=== PATIENT | female | born 1930 | race Caucasian/White ===

== ENCOUNTER → 2017-01-19 12:05 | Outpatient (CLI) | payer MEDICARE, BC ==
[2011-05-18 11:02] VITALS: BMI 27.2
== END | disposition home or self-care (01) ==
LOC: D.MAMMO 12-10 10:00
DX: Z12.31 Encounter for screening mammogram for malignant neoplasm of breast (principal)

== ENCOUNTER 2017-02-13 18:12 | Inpatient (IN) | payer MEDICARE, BC ==
[2017-02-13 18:37] LABS: BASOPHILS 0.2 % (0-2); EOSINOPHILS 1.2 % (0-7); HEMATOCRIT 38.1 % (36.0-48.0); HEMOGLOBIN 12.7 g/dL (12-16); IMMATURE GRANULOCYTES 0.4 % (0-5); LYMPHOCYTES 21.3 % (15-50); MCH 32.3 pg (26.0-34.0); MCHC 33.3 g/dL (31.0-37.0); MCV 96.9 fL (80.0-100.0); NEUTROPHILS 68.9 % (40-80); PLATELET COUNT 278 10x3/uL (130-400); RBC 3.93 10x6/uL (4.00-5.40); RDW 13.3 % (11.5-14.5)
[2017-02-13 19:05] LABS: ALBUMIN 3.5 g/dL (3.4-5.0); ALKALINE PHOSPHATASE 97 U/L (46-116); ALT (SGPT) 22 U/L (10-68); CALC OSMOLALITY 273 mosm/kg (275-300); CALCIUM 9.2 mg/dL (8.5-10.1); CARBON DIOXIDE 25.3 mmol/L (21.0-32.0); CHLORIDE - SERUM 101 mmol/L (98-107); CREATININE - SERUM 0.7 mg/dL (0.6-1.3); GLUCOSE 116 mg/dL (74-106); POTASSIUM - SERUM 3.6 mmol/L (3.5-5.1); PROTEIN - SERUM 6.7 g/dL (6.4-8.2); SODIUM 135 mmol/L (136-145); UREA NITROGEN 22 mg/dL (7-18); eGFR NON AFRICAN AMERICAN 84 mL/min (90-120)
[2017-02-13] MEDS ORDERED: RESTORIL15 MG PO (23:56)
[2017-02-14] MEDS ORDERED: ROBAXIN500 MG PO (00:01)
[2017-02-14] MEDS ORDERED: PROZAC40 MG PO (00:02)
[2017-02-14] MEDS ORDERED: CELEBREX200 MG PO (00:03)
[2017-02-14 00:06] VITALS: BP 155/83; BMI 25.9
--- NOTE | 2017-02-14 00:17 | NUR ---
RN NOTE: ADMISSION ASSESSMENT COMPLETE. SNACK PROVIDED. PT ALERT AND ORIENTED. NEURO CHECK WNL.
--- NOTE | 2017-02-14 01:47 | NUR ---
PATIENT RESTING IN BED WITH EYES CLOSED AND NO VISIBLE SIGNS OF DISTRESS. BED IN LOWEST POSITION AND CALL LIGHT WITHIN REACH.
[2017-02-14 04:00] VITALS: BP 153/76
[2017-02-14 06:46] LABS: BASOPHILS 0.1 % (0-2); EOSINOPHILS 0.4 % (0-7); HEMATOCRIT 35.6 % (36.0-48.0); HEMOGLOBIN 11.8 g/dL (12-16); IMMATURE GRANULOCYTES 0.2 % (0-5); LYMPHOCYTES 12.2 % (15-50); MCH 32.2 pg (26.0-34.0); MCHC 33.1 g/dL (31.0-37.0); MEAN PLATELET VOLUME 9.5 fL (7.4-10.4); MONOCYTES 7.4 % (2-11); NEUTROPHILS 79.7 % (40-80); PLATELET COUNT 273 10x3/uL (130-400); RBC 3.67 10x6/uL (4.00-5.40); RDW 13.4 % (11.5-14.5); WBC 8.4 10x3/uL (4.8-10.8)
[2017-02-14 06:59] LABS: CALC OSMOLALITY 280 mosm/kg (275-300); CALCIUM 8.4 mg/dL (8.5-10.1); CARBON DIOXIDE 27.9 mmol/L (21.0-32.0); CHLORIDE - SERUM 106 mmol/L (98-107); GLUCOSE 113 mg/dL (74-106); POTASSIUM - SERUM 3.2 mmol/L (3.5-5.1); SODIUM 139 mmol/L (136-145); UREA NITROGEN 17 mg/dL (7-18)
[2017-02-14 07:04] LABS: CREATININE - SERUM 0.5 mg/dL (0.6-1.3); eGFR NON AFRICAN AMERICAN > 90 mL/min (90-120)
--- NOTE | 2017-02-14 07:30 | NUR ---
RECIEVED PT DURING WALKING ROUNDS. PT RESTING IN BED WITH COMPLAINTS OF NAUSEA BUT NO PAIN. MEDICATION TO BE GIVEN PER ORDER. ASSESSMENT DONE PER FLOWSHEET. BED IN LOW POSITION AND CALL LIGHT WITHIN REACH. WILL CONTINUE TO MONITOR.
[2017-02-14 09:48] VITALS: BP 139/62
[2017-02-14 12:05] VITALS: BP 127/62
--- NOTE | 2017-02-14 15:05 | NUR ---
ASSISTED PT TO BATHROOM PT VERY UNSTEADY. PT USED WALKER AND STAND BY ASSIST TO GET BACK TO BED. BECAME VERY NAUSEATED DURING WALKING, WILL ADMINISTER MEDICATION PER ORDER.
--- NOTE | 2017-02-14 19:15 | NUR ---
RECEIVED CARE FROM DAY NURSE. PT LYING IN BED WITH WET RAG TO FOREHEAD. NO NEEDS VOICED AT THIS TIME. NS INFUSING TO LEFT AC PER ORDER. CALL LIGHT AT SIDE. PT IN LOW FOWLERS POSITION.
[2017-02-14 21:22] VITALS: BP 147/70
[2017-02-15] VITALS: BP 150/75
--- NOTE | 2017-02-15 00:42 | NUR ---
PATIENT RESTING IN BED WITH NO VISIBLE SIGNS OF DISTRESS. BED IN LOWEST POSITION, CALL LIGHT WITHIN REACH AND BED ALARM ON.
[2017-02-15 04:38] LABS: BASOPHILS 0.1 % (0-2); EOSINOPHILS 0.4 % (0-7); HEMATOCRIT 34.1 % (36.0-48.0); HEMOGLOBIN 11.7 g/dL (12-16); IMMATURE GRANULOCYTES 0.4 % (0-5); LYMPHOCYTES 10.5 % (15-50); MCHC 34.3 g/dL (31.0-37.0); MCV 96.1 fL (80.0-100.0); MEAN PLATELET VOLUME 9.4 fL (7.4-10.4); MONOCYTES 8.5 % (2-11); NEUTROPHILS 80.1 % (40-80); PLATELET COUNT 257 10x3/uL (130-400); RBC 3.55 10x6/uL (4.00-5.40); WBC 7.9 10x3/uL (4.8-10.8)
[2017-02-15 04:56] LABS: ALBUMIN 2.9 g/dL (3.4-5.0); ALKALINE PHOSPHATASE 72 U/L (46-116); ALT (SGPT) 18 U/L (10-68); CALC OSMOLALITY 264 mosm/kg (275-300); CALCIUM 8.3 mg/dL (8.5-10.1); CARBON DIOXIDE 25.5 mmol/L (21.0-32.0); CHLORIDE - SERUM 100 mmol/L (98-107); CREATININE - SERUM 0.5 mg/dL (0.6-1.3); GLUCOSE 116 mg/dL (74-106); POTASSIUM - SERUM 3.5 mmol/L (3.5-5.1); PROTEIN - SERUM 5.6 g/dL (6.4-8.2); SODIUM 133 mmol/L (136-145); eGFR NON AFRICAN AMERICAN > 90 mL/min (90-120)
[2017-02-15 04:57] LABS: UREA NITROGEN 6 mg/dL (7-18)
--- NOTE | 2017-02-15 05:38 | NUR ---
PT K IS 3.5. REFUSSES POTASSIUM AT THIS TIME. PREVIOUS DOSE MADE HER VERY SICK TO HER STOMACH.
--- NOTE | 2017-02-15 07:30 | NUR ---
RECIEVED PT DURING WALKING ROUNDS. PT RESTING IN BED WITH COMPLAINTS OF A HEADACHE OF A 4 ON A SCALE OF 1-10. NO MEDICATION TO BE GIVEN AT THIS TIME. ASSESSMENT DONE PER FLOWSHEET. BED IN LOW POSITION AND CALL LIGHT WITHIN REACH. WILL CONTINUE TO MONITOR.
[2017-02-15 08:21] VITALS: BP 143/56
--- NOTE | 2017-02-15 10:05 | NUR ---
PT BECAME VERY NAUSEATED WHILE WALKING WITH PHYSICAL THERAPY. RETURNED TO BED WITH NO OTHER COMPLAINTS. WASH CAP APPLIED TO PTS HAIR TO REMOVED DRIED BLOOD. WILL ASSIST PT INTO SHOWER WHEN PT BEGINS TO FEEL BETTER.
[2017-02-15 12:42] VITALS: BMI 25.8
[2017-02-15 17:31] VITALS: BP 153/67
[2017-02-15 20:00] VITALS: BP 120/66
[2017-02-16] VITALS: BP 138/84
--- NOTE | 2017-02-16 01:09 | NUR ---
EYES CLOSED RESPIRATIONS WITH EASE AND UNLABORED.
[2017-02-16 04:00] VITALS: BP 158/71
[2017-02-16 04:50] LABS: BASOPHILS 0.1 % (0-2); EOSINOPHILS 0.6 % (0-7); HEMATOCRIT 34.6 % (36.0-48.0); HEMOGLOBIN 12.1 g/dL (12-16); IMMATURE GRANULOCYTES 0.3 % (0-5); LYMPHOCYTES 10.7 % (15-50); MCH 32.4 pg (26.0-34.0); MCV 92.5 fL (80.0-100.0); MEAN PLATELET VOLUME 9.5 fL (7.4-10.4); MONOCYTES 10.5 % (2-11); NEUTROPHILS 77.8 % (40-80); PLATELET COUNT 279 10x3/uL (130-400); RBC 3.74 10x6/uL (4.00-5.40); RDW 12.4 % (11.5-14.5); WBC 7.9 10x3/uL (4.8-10.8)
[2017-02-16 05:24] LABS: CALC OSMOLALITY 258 mosm/kg (275-300); CALCIUM 8.7 mg/dL (8.5-10.1); CARBON DIOXIDE 26.5 mmol/L (21.0-32.0); CHLORIDE - SERUM 94 mmol/L (98-107); CREATININE - SERUM 0.5 mg/dL (0.6-1.3); GLUCOSE 100 mg/dL (74-106); SODIUM 130 mmol/L (136-145); UREA NITROGEN 6 mg/dL (7-18); eGFR NON AFRICAN AMERICAN > 90 mL/min (90-120)
[2017-02-16 06:46] LABS: POTASSIUM - SERUM 2.8 mmol/L (3.5-5.1)
[2017-02-16] MEDS ORDERED: ZOFRAN4 MG PO (07:24)
[2017-02-16] MEDS ORDERED: ANTIVERT12.5 MG PO (07:25)
--- NOTE | 2017-02-16 07:52 | NUR ---
AWAKE AND ALERT. ORIENTED X3. NO C/O THIS AM. LUNGS ARE CLEAR BILATERALLY, NO COUGH NOTED. SKIN IS INTACT WITHOUT REDNESS. INCISION TO HEAD IS HEALING WITHOUT SIGNS OF INFECTION. IV TO LEFT AC IS PATENT WITHOUT REDNESS AT INSERTION SITE. DENIES NEEDS.
[2017-02-16 08:30] VITALS: BP 145/51
--- NOTE | 2017-02-16 09:30 | NUR ---
AMBULATED IN HALLWAY WITH PT USING RW. NO C/O PAIN WITH INCREASED ACTIVITY.
--- NOTE | 2017-02-16 09:51 | NUR ---
Patient Name: KIMBERLEY ASHER Admission Status: ER Accout number: [id number] Admission Date: 02-14-2017 : 1932 Admission Diagnosis: Attending: JOVANI FARIAS Current LOS: 2 Anticipated DC Date: Planned Disposition: Home with Home Health Primary Insurance: MEDICARE A & B Discharge Planning Comments: CM met with patient to assess discharge planning needs. Patient lives at [facility] where she is independent with her daily care. She stated that her son Lucio, will be the one to stay with her for a little while. She has a elevator and denies any stairs. She has a walker, cane and a tub chair. She has picked [employer], [facility] signed and placed in chart. Waiting for orders from Dr Colon. CM will continue to follow and assist with discharge planning needs. PCP: Rylee Valdes Lb (son)[phone] [facility] Facility Attendant: Arin Butt Patient Name: KIMBERLEY ASHER Admission Status: ER Accout number: [id number] Admission Date: 02-14-2017 : 1932 Admission Diagnosis: Attending: JOVANI FARIAS Current LOS: 2 Anticipated DC Date: Planned Disposition: Home with Home Health Primary Insurance: MEDICARE A & B Discharge Planning Comments: CM met with patient to assess discharge planning needs. Patient lives at [facility] where she is independent with her daily care. She stated that her son Lucio, will be the one to stay with her for a little while. She has a elevator and denies any stairs. She has a walker, cane and a tub chair. She has picked [employer], [employer] signed and placed in chart. Waiting for orders from Dr Colon. CM will continue to follow and assist with discharge planning needs. PCP: Rylee Asher (son)[phone] [facility] Facility Attendant: Arin Butt * Is the patient Alert and Oriented? Yes 0 * How many steps to enter\exit or inside your home? ELEVATOR 0 * PCP POOJA 0 * Pharmacy [facility] 0 * Preadmission Environment Home with Family 0 * ADLs Independent 0 * Equipment Cane Rolling Walker Shower Chair 0 * List name and contact numbers for known caregivers / representatives who currently or will assist patient after discharge: LUCIOMaricel ASHER (SON) [phone] 0 * Community resources currently utilized Other 0 * Please name any agencies selected above. [facility]ICE 0 * Additional services required to return to the preadmission environment? Yes 0 * Can the patient safely return to the preadmission environment? Yes 0 * Has this patient been hospitalized within the prior 30 days at any hospital? No 0 Grand Total: 0
--- NOTE | 2017-02-16 11:22 | NUR ---
UP TO BR WITH ONE PERSON ASSIST USING RW. VOIDED WITHOUT DIFFICULTY. ASSISTED TO DRESS PER STAFF. SL TO LEFT AC D/C WITH CATHETER INTACT. DISCHARGE INSTRUCTIONS GIVEN BOTH VERBALLY AND WRITTEN. ALL QUESTIONS ANSWERED. PATIENT VERBALIZED UNDERSTANDING OF SAME. WILL COVER WITH SON PRIOR TO DISCHARGE. WAITING ON RIDE AT THIS THIS TIME.
--- NOTE | 2017-02-16 14:30 | NUR ---
DISCHARGED TO HOME AMBULATORY WITH SON. ALL QUESTIONS ANSWERED.
--- NOTE | 2017-02-16 14:38 | NUR ---
spoke with june's office and he ok'd the home [facility] order along with PT. patient set up with HH & PT with [facility], referral faxed
== END 2017-02-16 14:30 | disposition home health service (06) | DRG 90 ==
LOC: OBSVTIME → D.ER 18:12 → D.MS 23:31 → D.ER 23:35 → D.MS 23:35 → OBSVTIME 23:36 → D.MS 02-14 14:45
PROVIDERS: Family Medicine; ADMIT Family Medicine
PROC: 0HQ0XZZ Repair Scalp Skin, External Approach (ICD-10-PCS; principal; 2017-02-13)
DX: S06.0X0A Concussion without loss of consciousness, initial encounter (principal); S01.01XA Laceration without foreign body of scalp, initial encounter; W17.89XA Other fall from one level to another, initial encounter; R51 Headache; E87.6 Hypokalemia; R42 Dizziness and giddiness

== ENCOUNTER → 2018-01-20 16:38 | Outpatient (CLI) | payer MEDICARE, BC ==
[~2018-01-20 16:38] MED LIST: ANTIVERT12.5 MG PO; CELEBREX200 MG PO; PROZAC40 MG PO; RESTORIL15 MG PO; ROBAXIN500 MG PO; ZOFRAN4 MG PO
== END | disposition home or self-care (01) ==
LOC: D.MAMMO 10:00
DX: Z12.31 Encounter for screening mammogram for malignant neoplasm of breast (principal)